=== PATIENT | female | born 1985 | race American Indian/Alaskan Native ===

== ENCOUNTER 2016-09-18 17:53 | Emergency (ER) | payer SELFPAY ==
[2016-09-18 18:37] VITALS: BP 121/78
--- NOTE | 2016-09-18 18:40 | Emergency Department Report ---
Chief Complaint: Upper Respiratory Infection Stated Complaint: FLU SYMPTOMS Time Seen by Provider: 09/18/16 18:36 - HPI History of Present Illness: pt c/o flu symptoms x 1 week, now with productive cough. also mass to L breast. - ROS Review of Systems: + skin change to L breast no drainage + productive cough - Exam Vital Signs: Vital Signs 09/18/16 18:33 Temperature 98.3 F Pulse Rate 83 Respiratory 16 Rate Blood Pressure 121/78 O2 Sat by Pulse 100 Oximetry Physical Exam: PT looks well, non toxic lungs diminished gina, no wheezing heard at this time MSE screening note: Focused history and physical exam performed. Due to findings the following was ordered: lab, xr ED Disposition for MSE Condition: Stable
--- NOTE | 2016-09-18 20:25 | XRay Report ---
FINAL REPORT EXAM: XR CHEST ROUTINE 2V HISTORY: cough TECHNIQUE: PA and lateral views of the chest PRIORS: None. FINDINGS: Lines, tubes, and devices: N/A Lungs and pleura: Trachea is normal in position. Lungs are clear of infiltrate, pleural effusion, vascular congestion, or pneumothorax. Cardiomediastinal silhouette: The heart is borderline enlarged. Other: Bony structures are intact. IMPRESSION: Borderline cardiomegaly. No acute cardiopulmonary process seen.
--- NOTE | 2016-09-18 21:04 | Emergency Department Report ---
HPI - General Chief Complaint: Upper Respiratory Infection Time Seen by Provider: 09/18/16 18:36 - HPI HPI: 31-year-old female comes in for flulike symptoms 1 week. Patient complains of a productive cough with thick yellow greenish mucus. She reports fever off and on aching all over. She denies any nausea vomiting. She complained also complains of a knot in her left breast 3 days. Complains of nasal congestion cough with chest pains from coughing and headache ED Past Medical Hx - Past Medical History Previous Medical History?: No - Surgical History Past Surgical History?: No - Social History Smoking Status: Current Every Day Smoker Substance Use Type: None - Medications Home Medications: Home Medications Medication Instructions Recorded Confirmed Last Taken Type Azithromycin [Zithromax] 250 mg PO QDAY #6 tablet 09/18/16 Unknown Rx Fluticasone [Flonase] 1 spray NS QDAY #1 bottle 09/18/16 Unknown Rx Loratadine [Claritin] 10 mg PO DAILY #30 tablet 09/18/16 Unknown Rx ED Review of Systems ROS: Stated complaint: FLU SYMPTOMS Other details as noted in HPI Constitutional: chills, fever ENT: congestion Respiratory: cough Cardiovascular: chest pain (with cough) Neurological: headache Physical Exam - Physical Exam Vital Signs: Vital Signs 09/18/16 18:33 Temperature 98.3 F Pulse Rate 83 Respiratory 16 Rate Blood Pressure 121/78 O2 Sat by Pulse 100 Oximetry General: GENERAL: Alert and oriented x3, no apparent distress, Normal Gait, atraumatic. HEAD: Head is normocephalic and a-traumatic. EYES: Extra ocular muscles are intact. Pupils are equal, round, and reactive to light and accommodation. EARS: symetrical, atraumatic, non tender, ear canal clear and moderate cerumen, tympanic membrance non inflamed. gross auditory nml bilaterally. NOSE: Nose symetrical, Nontender,Nares appeared normal. MOUTH:Mouth is well hydrated and without lesions. Tonsils nonerythematous or swollen, Uvula midline, Tongue not elevated. Mucous membranes are moist. Posterior pharynx clear, no exudate or lesions. Patent airways. NECK: Supple. Non edematous, No carotid bruits. No lymphadenopathy or thyromegaly. LUNGS: Symetrical with respiration, No wheezing, no rales or crackles, CTAB. HEART: S1, S2 present, regular rate and rhythm without murmur, no rubs, no gallops. NEUROLOGIC: No focal Deficit, Cranial nerves II through XII are grossly intact. No loss of sensation, No facial droop, Negative rhomberg. PSYCHIATRIC: Mood is congruent with affect, denies suicidal or homicidal ideations. SKIN: Warm and dry, No lesions, No ulceration or induration present ED Course Vital Signs 09/18/16 18:33 Temperature 98.3 F Pulse Rate 83 Respiratory 16 Rate Blood Pressure 121/78 O2 Sat by Pulse 100 Oximetry Critical care attestation.: If time is entered above; I have spent that time in minutes in the direct care of this critically ill patient, excluding procedure time. ED Disposition Clinical Impression: URI (upper respiratory infection), Sinusitis Disposition: DISCHARGED TO HOME OR SELFCARE Is pt being admited?: No Does the pt Need Aspirin: No Condition: Stable Instructions: Upper Respiratory Infection (ED), Sinusitis (ED) Additional Instructions: Please complete antibiotics as prescribed. Take the Claritin and Flonase has prescribed follow up to primary care provider. Regards to your breasts please follow up to primary care provider for further evaluation. Prescriptions: Azithromycin [Zithromax] 250 mg PO QDAY #6 tablet Fluticasone [Flonase] 1 spray NS QDAY #1 bottle Loratadine [Claritin] 10 mg PO DAILY #30 tablet Referrals: PRIMARY CARE, [Primary Care Provider] - 3-5 Days [facility] [Outside] - 3-5 Days Forms: Work/School Release Form(ED)
== END 2016-09-18 21:35 | disposition home or self-care (01) ==
LOC: ED 17:53
DX: J06.9 Acute upper respiratory infection, unspecified (principal); J32.9 Chronic sinusitis, unspecified; F17.200 Nicotine dependence, unspecified, uncomplicated
CPT/HCPCS: 71020; 81025; 99283

== ENCOUNTER 2017-11-19 05:11 | Emergency (ER) | payer SELFPAY ==
[2017-11-19 05:59] VITALS: BP 147/93
== END 2017-11-19 13:00 | disposition left against medical advice (07) ==
LOC: ED 05:11
DX: R05 Cough (principal); Z53.21 Procedure and treatment not carried out due to patient leaving prior to being seen by health care provider

== ENCOUNTER 2018-07-09 10:32 | Emergency (ER) | payer SELFPAY ==
[2018-07-09 10:55] VITALS: BP 140/86
[2018-07-09 11:45] LABS: Bacteria,Urine 1+ /HPF (Negative); Bilirubin,Urine NEG (Negative); Blood,Urine SM (Negative); Color,Urine Yellow (Yellow); Mucus,Urine FEW /HPF; Protein,Urine <15 mg/dL mg/dL (Negative); Urobilinogen,Urine < 2.0 mg/dL (<2.0)
[2018-07-09 11:46] LABS: HCG Qualitative,Urine Negative (Negative)
[2018-07-09] MEDS ORDERED: ROCEPHIN IM ONE (12:02)
[2018-07-09] MEDS ORDERED: XYLOCAINE 1% MPF 5 mL INFILTRATI ONE (12:02)
[2018-07-09] MEDS ORDERED: ZOFRAN ODT PO ONE (12:03)
[2018-07-09] MEDS ORDERED: FLAGYL PO ONE (12:03)
[2018-07-09] MEDS ORDERED: ZITHROMAX PO ONE (12:03)
--- NOTE | 2018-07-09 12:08 | Emergency Department Report ---
ED General Adult HPI - General Chief complaint: Urogenital-Female Stated complaint: EXTREME PAIN/DISCHARGE Time Seen by Provider: 07/09/18 11:14 Source: patient Mode of arrival: Ambulatory Limitations: No Limitations - History of Present Illness Initial comments: Patient presents to the emergency department today complaining of vaginal discharge and irritation for the last week. Patient does endorse concern for STD with recent unprotected intercourse. Patient denies any chest pain, shortness breath, or abdominal pain. -: Gradual Location: genitals Radiation: non-radiation Severity scale (0 -10): 2 Quality: burning Consistency: constant Improves with: none Worsens with: none Associated Symptoms: denies other symptoms Treatments Prior to Arrival: none - Related Data Previous Rx's Medication Instructions Recorded Last Taken Type Azithromycin [Zithromax] 250 mg PO QDAY #6 tablet 09/18/16 Unknown Rx Fluticasone [Flonase] 1 spray NS QDAY #1 bottle 09/18/16 Unknown Rx Loratadine [Claritin] 10 mg PO DAILY #30 tablet 09/18/16 Unknown Rx Fluconazole [Diflucan TAB] 100 mg PO QDAY #2 tablet 07/09/18 Unknown Rx Sulfamethoxazole/Trimethoprim 1 each PO BID #10 tablet 07/09/18 Unknown Rx [Bactrim DS TAB] Allergies Allergy/AdvReac Type Severity Reaction Status Date / Time No Known Allergies Allergy Verified 07/09/18 10:55 ED Review of Systems ROS: Stated complaint: EXTREME PAIN/DISCHARGE Other details as noted in HPI Comment: All other systems reviewed and negative Constitutional: denies: chills, fever Eyes: denies: eye pain, eye discharge, vision change ENT: denies: ear pain, throat pain Respiratory: denies: cough, shortness of breath, wheezing Cardiovascular: denies: chest pain, palpitations Endocrine: no symptoms reported Gastrointestinal: denies: abdominal pain, nausea, diarrhea Genitourinary: dysuria, discharge. denies: urgency Musculoskeletal: denies: back pain, joint swelling, arthralgia Skin: denies: rash, lesions Neurological: denies: headache, weakness, paresthesias Psychiatric: denies: anxiety, depression Hematological/Lymphatic: denies: easy bleeding, easy bruising ED Past Medical Hx - Past Medical History Previous Medical History?: No - Surgical History Past Surgical History?: No - Social History Smoking Status: Never Smoker - Medications Home Medications: Home Medications Medication Instructions Recorded Confirmed Last Taken Type Azithromycin [Zithromax] 250 mg PO QDAY #6 tablet 09/18/16 Unknown Rx Fluticasone [Flonase] 1 spray NS QDAY #1 bottle 09/18/16 Unknown Rx Loratadine [Claritin] 10 mg PO DAILY #30 tablet 09/18/16 Unknown Rx Fluconazole [Diflucan TAB] 100 mg PO QDAY #2 tablet 07/09/18 Unknown Rx Sulfamethoxazole/Trimethoprim 1 each PO BID #10 tablet 07/09/18 Unknown Rx [Bactrim DS TAB] ED Physical Exam - General Limitations: No Limitations General appearance: alert, in no apparent distress - Head Head exam: Present: atraumatic, normocephalic - Eye Eye exam: Present: normal appearance, PERRL, EOMI - ENT ENT exam: Present: mucous membranes moist - Neck Neck exam: Present: normal inspection - Respiratory Respiratory exam: Present: normal lung sounds bilaterally. Absent: respiratory distress, wheezes, rales - Cardiovascular Cardiovascular Exam: Present: regular rate, normal rhythm. Absent: systolic murmur, diastolic murmur, rubs, gallop - GI/Abdominal GI/Abdominal exam: Present: soft, normal bowel sounds. Absent: distended, tenderness - Rectal Rectal exam: Present: deferred - External exam: Present: other (deferred) Speculum exam: Present: other (deferred) Bi-manual exam: Present: other (deferred) - Extremities Exam Extremities exam: Present: normal inspection - Back Exam Back exam: Present: normal inspection - Neurological Exam Neurological exam: Present: alert, oriented X3 - Psychiatric Psychiatric exam: Present: normal affect, normal mood - Skin Skin exam: Present: warm, dry, intact, normal color. Absent: rash ED Course Vital Signs 07/09/18 10:52 Temperature 97.7 F Pulse Rate 64 Respiratory 16 Rate Blood Pressure 140/86 O2 Sat by Pulse 100 Oximetry ED Medical Decision Making - Medical Decision Making Patient given option of pelvic exam and treatment or just treatment alone and she politely declined pelvic exam Critical care attestation.: If time is entered above; I have spent that time in minutes in the direct care of this critically ill patient, excluding procedure time. ED Disposition Clinical Impression: Discharge from genitalia, STD exposure Disposition: TO HOME OR SELFCARE Is pt being admited?: No Does the pt Need Aspirin: No Condition: Stable Instructions: Safe Sex (ED), Sexually Transmitted Diseases (ED) Additional Instructions: return if worse Prescriptions: Fluconazole [Diflucan TAB] 100 mg PO QDAY #2 tablet Sulfamethoxazole/Trimethoprim [Bactrim DS TAB] 1 each PO BID #10 tablet Referrals: [facility] [Provider Group] - 3-5 Days [facility] [Provider Group] - 3-5 Days [facility] [Outside] - 3-5 Days Time of Disposition: 12:07
== END 2018-07-09 12:30 | disposition home or self-care (01) ==
LOC: ED 10:32
DX: N89.8 Other specified noninflammatory disorders of vagina (principal); Z20.2 Contact with and (suspected) exposure to infections with a predominantly sexual mode of transmission
CPT/HCPCS: 81001; 81025; 96372; 99283; J0696; Q0162

== ENCOUNTER 2019-06-01 15:15 | Emergency (ER) | payer SELFPAY ==
[2019-06-01 15:40] VITALS: BP 136/75
--- NOTE | 2019-06-01 15:59 | Event Note ---
ED Screening Note Date of service: 06/01/19 Time: 15:39 ED Screening Note: 33 y o female presents with buttock lesions, swelling and pain x 3days lmp- 05/11/19 This initial assessment/diagnostic orders/clinical plan/treatment(s) is/are subject to change based on patients health status, clinical progression and re- assessment by fellow clinical providers in the ED. Further treatment and workup at subsequent clinical providers discretion. Patient/guardian urged not to elope from the ED as their condition may be serious if not clinically assessed and managed. Initial orders include: acc eval
[2019-06-01] MEDS ORDERED: CYCLOBENZAPRINE 10 MG TAB PO ONE (18:31)
[2019-06-01] MEDS ORDERED: IBUPROFEN 600 MG TAB PO ONE (18:31)
[2019-06-01] MEDS ORDERED: ACETAMINOPHEN 500 MG TAB PO ONE (18:31)
[2019-06-01] MEDS ORDERED: AZITHROMYCIN 250 MG TAB PO ONE (18:32)
[2019-06-01] MEDS ORDERED: LIDOCAINE-MPF (1%) 10 MG/1 ML VIAL 5 ML INFILTRATI ONE (18:32)
[2019-06-01 18:58] LABS: HCG Qualitative,Urine Negative (Negative)
[2019-06-01 18:59] LABS: Bilirubin,Urine NEG (Negative); Blood,Urine NEG (Negative); Color,Urine Yellow (Yellow); Mucus,Urine FEW /HPF; Protein,Urine <15 mg/dL mg/dL (Negative); Urobilinogen,Urine < 2.0 mg/dL (<2.0)
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
== END 2019-06-01 19:40 | disposition home or self-care (01) ==
LOC: ED 15:15
DX: S76.012A Strain of muscle, fascia and tendon of left hip, initial encounter (principal); S30.0XXA Contusion of lower back and pelvis, initial encounter; N76.0 Acute vaginitis; F17.200 Nicotine dependence, unspecified, uncomplicated; Z79.899 Other long term (current) drug therapy; W22.8XXA Striking against or struck by other objects, initial encounter; Y93.89 Activity, other specified; Y92.89 Other specified places as the place of occurrence of the external cause; Y99.8 Other external cause status
CPT/HCPCS: 81001; 81025; 87210; 87591; 96372; 99284; J0696

== ENCOUNTER 2019-09-02 13:03 | Emergency (ER) | payer SELFPAY ==
[2019-09-02 14:20] VITALS: BP 130/81
--- NOTE | 2019-09-02 14:22 | Emergency Department Report ---
Upper Respiratory HPI - HPI Chief Complaint: Upper Respiratory Infection Stated Complaint: COLD SYM Time Seen by Provider: 09/02/19 14:17 Duration: 3 Days URI Symptoms: Rhinorrhea: Yes, Sore Throat: No, Ear Pain: No, Cough: Yes, Shortness of Breath: No, Sick Contacts: No, Unable to Take Fluids: No, Urine Output Abnormal: No, Listless Behavior: No Other History: This is a 34-year-old female nontoxic well in appearnce with no signs of distress presents with dry nonproductive cough, body aches, and rhinnorrhea x3 days. Patient denies any chest pain, shortness of breathe, fever, chills, nausea, vomiting, headache, stiff neck, abdominal pain, numbness or tingling. Patient denies any recent travels, long car rides, or recent hospital stays. Denies any allergies or significant PMH. - Home Meds and Allergies Home Medications: Previous Rx's Medication Instructions Recorded Last Taken Type Azithromycin [Zithromax] 250 mg PO QDAY #6 tablet 09/18/16 Unknown Rx Fluticasone [Flonase] 1 spray NS QDAY #1 bottle 09/18/16 Unknown Rx Loratadine (Nf) [Claritin] 10 mg PO DAILY #30 tablet 09/18/16 Unknown Rx Fluconazole [Diflucan TAB] 100 mg PO QDAY #2 tablet 07/09/18 Unknown Rx Sulfamethoxazole/Trimethoprim 1 each PO BID #10 tablet 07/09/18 Unknown Rx [Bactrim DS TAB] DOXYCYCLINE Hyclate [Vibramycin 100 mg PO Q12HR #20 capsule 06/01/19 Unknown Rx CAP] Fluconazole [Diflucan TAB] 150 mg PO ONCE #1 tablet 06/01/19 Unknown Rx Ibuprofen [Motrin] 800 mg PO Q8HR PRN #30 tablet 06/01/19 Unknown Rx metroNIDAZOLE [Flagyl] 500 mg PO Q12HR #14 tab 06/01/19 Unknown Rx tiZANidine [Zanaflex 4mg TAB] 4 mg PO Q8H PRN #21 tablet 06/01/19 Unknown Rx traMADoL [Ultram] 50 mg PO Q6HR PRN #10 tablet 06/01/19 Unknown Rx Allergies/Adverse Reactions: Allergies Allergy/AdvReac Type Severity Reaction Status Date / Time No Known Allergies Allergy Verified 07/09/18 10:55 ED Review of Systems ROS: Stated complaint: COLD SYM Other details as noted in HPI Constitutional: denies: chills, fever Eyes: denies: eye pain, eye discharge, vision change ENT: congestion. denies: ear pain, throat pain Respiratory: cough. denies: shortness of breath, wheezing Cardiovascular: denies: chest pain, palpitations Endocrine: no symptoms reported Gastrointestinal: denies: abdominal pain, nausea, diarrhea Genitourinary: denies: urgency, dysuria, discharge Musculoskeletal: denies: back pain, joint swelling, arthralgia Skin: denies: rash, lesions Neurological: denies: headache, weakness, paresthesias Psychiatric: denies: anxiety, depression Hematological/Lymphatic: denies: easy bleeding, easy bruising ED Past Medical Hx - Past Medical History Previous Medical History?: No - Surgical History Past Surgical History?: No - Social History Smoking Status: Current Every Day Smoker Substance Use Type: None - Medications Home Medications: Home Medications Medication Instructions Recorded Confirmed Last Taken Type Azithromycin [Zithromax] 250 mg PO QDAY #6 tablet 09/18/16 Unknown Rx Fluticasone [Flonase] 1 spray NS QDAY #1 bottle 09/18/16 Unknown Rx Loratadine (Nf) [Claritin] 10 mg PO DAILY #30 tablet 09/18/16 Unknown Rx Fluconazole [Diflucan TAB] 100 mg PO QDAY #2 tablet 07/09/18 Unknown Rx Sulfamethoxazole/Trimethoprim 1 each PO BID #10 tablet 07/09/18 Unknown Rx [Bactrim DS TAB] DOXYCYCLINE Hyclate [Vibramycin 100 mg PO Q12HR #20 capsule 06/01/19 Unknown Rx CAP] Fluconazole [Diflucan TAB] 150 mg PO ONCE #1 tablet 06/01/19 Unknown Rx Ibuprofen [Motrin] 800 mg PO Q8HR PRN #30 tablet 06/01/19 Unknown Rx metroNIDAZOLE [Flagyl] 500 mg PO Q12HR #14 tab 06/01/19 Unknown Rx tiZANidine [Zanaflex 4mg TAB] 4 mg PO Q8H PRN #21 tablet 06/01/19 Unknown Rx traMADoL [Ultram] 50 mg PO Q6HR PRN #10 tablet 06/01/19 Unknown Rx ED Bronchiolitis Physical Exam - Exam General: Vital signs noted. No distress. Alert and acting appropriately. HEENT: No Pharyngeal Erythema, No Conjuctival Injection, No Dry Mucous Membranes, No Rhinorrhea Ear: Neither TM Bulge, Neither TM Erythema, Neither EAC Discharge Neck: No Adenopathy, No Rigidity Lungs: Yes Clear Lung Sounds, Yes Good Air Exchange, No Wheezes, No Stridor, No Cough, No Nasal Flaring, No Retractions, No Use of Accessory Muscles Heart: Yes Regular, No Murmur Abdomen: Yes Normal Bowel Sounds, No Tenderness, No Peritoneal Signs Skin: No Rash, No Eczema Neurologic: Alert and oriented, no deficits. Musculoskeletal: Unremarkable. ED Physical Exam - General Limitations: No Limitations ED Course - Reevaluation(s) Reevaluation #1: 09/02/19 14:20 Patient is speaking in full sentences with no signs of distress noted. ED Medical Decision Making - Medical Decision Making 34-year-old female that presents with viral (flu) bronchitis like symptoms. Patient is stable and was examined by me. Patient is oer the treatment of Tamiflu period. Patient was educated on OTC suppurative care and medications. Vital signs are stable. Patient was instructed to Follow-up with a primary care doctor in 3-5 days or if symptoms worsen and continue return to emergency room as soon as possible. At time of discharge, the patient does not seem toxic or ill in appearance. No acute signs of distress noted. Patient agrees to discharge treatment plan of care. No further questions noted by the patient. Critical care attestation.: If time is entered above; I have spent that time in minutes in the direct care of this critically ill patient, excluding procedure time. ED Disposition Clinical Impression: Viral upper respiratory illness Disposition: MED SCREENING EXAM-LEFT Is pt being admited?: No Does the pt Need Aspirin: No Condition: Stable Additional Instructions: Follow-up with a primary care doctor in 3-5 days or if symptoms worsen and continue return to emergency room as soon as possible. Referrals: PRIMARY CAREMD [Referring] - 3-5 Days DAYRON CAROLINA MD [Staff Physician] - 3-5 Days [facility] [Outside] - 3-5 Days Forms: Work/School Release Form(ED)
== END 2019-09-02 15:42 | disposition left against medical advice (07) ==
LOC: ED 13:03
DX: J06.9 Acute upper respiratory infection, unspecified (principal); F17.200 Nicotine dependence, unspecified, uncomplicated
CPT/HCPCS: 99282

== ENCOUNTER 2019-10-19 10:30 | Emergency (ER) | payer SELFPAY ==
[2019-10-19 11:02] VITALS: BP 124/64
--- NOTE | 2019-10-19 11:41 | Emergency Department Report ---
Minor Respiratory - HPI Chief Complaint: Earache Stated Complaint: EAR RASH Time Seen by Provider: 10/19/19 11:34 Duration: 3 Days Pain Location: Ear Severity: mild Minor Respiratory: Yes Able to Tolerate Fluids, No Rhinorrhea, No Sore Throat, No Ear Pain, No Cough, No Sick Contacts, No Hemoptysis, No Chest Pain, No Shortness of Breath, No Fever Other History: 34 yo AA female comes to er with l ear pain; concerning for drew. ro fb to ear- to [facility] ED Review of Systems ROS: Stated complaint: EAR RASH Other details as noted in HPI Comment: All other systems reviewed and negative ED Past Medical Hx - Past Medical History Previous Medical History?: No - Surgical History Past Surgical History?: No - Family History Family history: no significant - Social History Smoking Status: Never Smoker Substance Use Type: None - Medications Home Medications: Home Medications Medication Instructions Recorded Confirmed Last Taken Type Azithromycin [Zithromax] 250 mg PO QDAY #6 tablet 09/18/16 Unknown Rx Fluticasone [Flonase] 1 spray NS QDAY #1 bottle 09/18/16 Unknown Rx Loratadine (Nf) [Claritin] 10 mg PO DAILY #30 tablet 09/18/16 Unknown Rx Fluconazole [Diflucan TAB] 100 mg PO QDAY #2 tablet 07/09/18 Unknown Rx Sulfamethoxazole/Trimethoprim 1 each PO BID #10 tablet 07/09/18 Unknown Rx [Bactrim DS TAB] DOXYCYCLINE Hyclate [Vibramycin 100 mg PO Q12HR #20 capsule 06/01/19 Unknown Rx CAP] Fluconazole [Diflucan TAB] 150 mg PO ONCE #1 tablet 06/01/19 Unknown Rx Ibuprofen [Motrin] 800 mg PO Q8HR PRN #30 tablet 06/01/19 Unknown Rx metroNIDAZOLE [Flagyl] 500 mg PO Q12HR #14 tab 06/01/19 Unknown Rx tiZANidine [Zanaflex 4mg TAB] 4 mg PO Q8H PRN #21 tablet 06/01/19 Unknown Rx traMADoL [Ultram] 50 mg PO Q6HR PRN #10 tablet 06/01/19 Unknown Rx Minor Respiratory Exam - Exam General: Vital signs noted. No distress. Alert and acting appropriately. HEENT: Yes Moist Mucous Membranes, No Pharyngeal Erythema, No Pharyngeal Exudates, No Rhinorrhea, No Conjuctival Injection, No Frontal Tenderness, No Maxillary Tenderness Ear: Neither TM Bulge, Neither TM Erythema, Neither EAC Pain, Neither EAC Discharge Neck: Yes Supple, No Adenopathy Lungs: Yes Good Air Exchange, No Wheezes, No Ronchi, No Stridor, No Cough, No Labored Respirations, No Retractions, No Use of Accessory Muscles, No Other Abnormal Lung Sounds Heart: Yes Regular, No Murmur Abdomen: Yes Normal Bowel Sounds, No Tenderness, No Peritoneal Signs Skin: No Rash, No Edema Neurologic: Alert and oriented, no deficits. Musculoskeletal: Unremarkable. ED Course Vital Signs 10/19/19 10:54 Temperature 98.0 F Pulse Rate 68 Respiratory 16 Rate Blood Pressure 124/64 O2 Sat by Pulse 100 Oximetry ED Medical Decision Making - Medical Decision Making no fb seen on exam ear irrigated dc home with dc instructions and pcp follow up Vital Signs 10/19/19 10:54 Temperature 98.0 F Pulse Rate 68 Respiratory 16 Rate Blood Pressure 124/64 O2 Sat by Pulse 100 Oximetry Critical care attestation.: If time is entered above; I have spent that time in minutes in the direct care of this critically ill patient, excluding procedure time. ED Disposition Clinical Impression: Foreign body in ear Disposition: DC-01 TO HOME OR SELFCARE Is pt being admited?: No Does the pt Need Aspirin: No Condition: Stable Instructions: Ear Foreign Body (ED) Referrals: DAYRON CAROLINA MD [Staff Physician] - 3-5 Days Forms: Work/School Release Form(ED) Time of Disposition: 11:40
== END 2019-10-19 12:13 | disposition home or self-care (01) ==
LOC: ED 10:30
DX: T16.2XXA Foreign body in left ear, initial encounter (principal); Z79.1 Long term (current) use of non-steroidal anti-inflammatories (NSAID); Z79.2 Long term (current) use of antibiotics; Z79.899 Other long term (current) drug therapy; X58.XXXA Exposure to other specified factors, initial encounter; Y93.89 Activity, other specified; Y92.89 Other specified places as the place of occurrence of the external cause; Y99.8 Other external cause status
CPT/HCPCS: 99283

== ENCOUNTER 2021-03-09 06:38 | Emergency (ER) | payer MEDICAID ==
[2021-03-09 06:57] VITALS: BP 127/78
--- NOTE | 2021-03-09 07:44 | Emergency Department Report ---
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 Patient denies any other trauma. She states that she feels them in her shoulder and her shoulder blade. She denies any chest pain no shortness of breath. States that she took a muscle relaxant and Aleve without much relief. MD Complaint: back pain -: Last night Similar Symptoms Previously: No Place: work Radiation: left leg Severity: severe Severity scale (0 -10): 10 Quality: burning, sharp Consistency: intermittent Improves With: none Worsens With: none Associated Symptoms: denies other symptoms. denies: numbness, difficulty walking, difficulty urinating, incontinence, headaches, shortness of breath - Related Data Previous Rx's Medication Instructions Recorded Last Taken Type Azithromycin [Zithromax] 250 mg PO QDAY #6 tablet 09/18/16 Unknown Rx Fluticasone [Flonase] 1 spray NS QDAY #1 bottle 09/18/16 Unknown Rx Loratadine (Nf) [Claritin] 10 mg PO DAILY #30 tablet 09/18/16 Unknown Rx Fluconazole [Diflucan TAB] 100 mg PO QDAY #2 tablet 07/09/18 Unknown Rx Sulfamethoxazole/Trimethoprim 1 each PO BID #10 tablet 07/09/18 Unknown Rx [Bactrim DS TAB] DOXYCYCLINE Hyclate [Vibramycin 100 mg PO Q12HR #20 capsule 06/01/19 Unknown Rx CAP] Fluconazole (Nf) [Diflucan TAB] 150 mg PO ONCE #1 tablet 06/01/19 Unknown Rx metroNIDAZOLE [Flagyl] 500 mg PO Q12HR #14 tab 06/01/19 Unknown Rx traMADoL [Ultram] 50 mg PO Q6HR PRN #10 tablet 06/01/19 Unknown Rx Ibuprofen [Motrin 800 MG tab] 800 mg PO Q8HR PRN #30 tablet 03/09/21 Unknown Rx tiZANidine [Zanaflex 4mg TAB] 4 mg PO Q8H PRN #21 tablet 03/09/21 Unknown Rx Allergies Allergy/AdvReac Type Severity Reaction Status Date / Time No Known Allergies Allergy Verified 07/09/18 10:55 ED Review of Systems ROS: Stated complaint: BACK PAIN Other details as noted in HPI Comment: All other systems reviewed and negative ED Past Medical Hx - Past Medical History Previous Medical History?: No - Surgical History Past Surgical History?: No - Social History Smoking Status: Never Smoker Substance Use Type: None - Medications Home Medications: Home Medications Medication Instructions Recorded Confirmed Last Taken Type Azithromycin [Zithromax] 250 mg PO QDAY #6 tablet 09/18/16 Unknown Rx Fluticasone [Flonase] 1 spray NS QDAY #1 bottle 09/18/16 Unknown Rx Loratadine (Nf) [Claritin] 10 mg PO DAILY #30 tablet 09/18/16 Unknown Rx Fluconazole [Diflucan TAB] 100 mg PO QDAY #2 tablet 07/09/18 Unknown Rx Sulfamethoxazole/Trimethoprim 1 each PO BID #10 tablet 07/09/18 Unknown Rx [Bactrim DS TAB] DOXYCYCLINE Hyclate [Vibramycin 100 mg PO Q12HR #20 capsule 06/01/19 Unknown Rx CAP] Fluconazole (Nf) [Diflucan TAB] 150 mg PO ONCE #1 tablet 06/01/19 Unknown Rx metroNIDAZOLE [Flagyl] 500 mg PO Q12HR #14 tab 06/01/19 Unknown Rx traMADoL [Ultram] 50 mg PO Q6HR PRN #10 tablet 06/01/19 Unknown Rx Ibuprofen [Motrin 800 MG tab] 800 mg PO Q8HR PRN #30 tablet 03/09/21 Unknown Rx tiZANidine [Zanaflex 4mg TAB] 4 mg PO Q8H PRN #21 tablet 03/09/21 Unknown Rx ED Physical Exam - General Limitations: No Limitations General appearance: alert, in no apparent distress - Head Head exam: Present: atraumatic, normocephalic - Eye Eye exam: Present: normal appearance - ENT ENT exam: Present: mucous membranes moist - Neck Neck exam: Present: normal inspection, tenderness, full ROM - Respiratory Respiratory exam: Absent: respiratory distress, accessory muscle use - Cardiovascular Cardiovascular Exam: Present: regular rate - Extremities Exam Extremities exam: Present: normal inspection, full ROM. Absent: tenderness - Back Exam Back exam: Present: full ROM, tenderness (bilateral scapular ), muscle spasm - Neurological Exam Neurological exam: Present: alert, oriented X3, normal gait - Psychiatric Psychiatric exam: Present: normal affect, normal mood - Skin Skin exam: Present: warm, dry, intact, normal color. 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 Patient denies any other trauma. She states that she feels them in her shoulder and her shoulder blade. She denies any chest pain no shortness of breath. States that she took a muscle relaxant and Aleve without much relief. Discussed with patient I will give a prescription for pain and a muscle relaxant. Discussed with patient to rest. Follow-up with a back specialist no improvement. Critical care attestation.: If time is entered above; I have spent that time in minutes in the direct care of this critically ill patient, excluding procedure time. ED Disposition Clinical Impression: Back pain Disposition: HOME / SELF CARE / HOMELESS Is pt being admited?: No Does the pt Need Aspirin: No Condition: Stable Instructions: Acute Back Pain, Adult Additional Instructions: take medications as needed. Follow up with your provider or the one I listed below. Prescriptions: Ibuprofen [Motrin 800 MG tab] 800 mg PO Q8HR PRN #30 tablet PRN Reason: Pain , Severe (7-10) tiZANidine [Zanaflex 4mg TAB] 4 mg PO Q8H PRN #21 tablet PRN Reason: Muscle Spasm Referrals: [facility] [Provider Group] - 3-5 Days Forms: Work/School Release Form(ED)
== END 2021-03-09 08:04 | disposition home or self-care (01) ==
LOC: ED 06:38
DX: M54.9 Dorsalgia, unspecified (principal)
CPT/HCPCS: 99282